=== PATIENT | female | born 1935 | race Two or more races ===

== ENCOUNTER 2017-09-23 13:48 | Emergency (ER) | payer OTHER ==
[~2017-09-23] VITALS: Ht 152.4 cm; Wt 54.0 kg
[~2017-09-23 13:48] MED LIST: AMLO5TAB2 PO; DICL50TA7 PO; SIMV5TAB6 PO; SITA1TAB2 PO; VALS1TAB6 PO
--- NOTE | 2017-09-23 13:55 | NUR ---
Pt was bb daughter for increasing rt sided abd pain that goes to rt back x sunday. Denies N/V. Denies hematuria, dysuria. ambulatory in a steady gait to ed bed 04, NAD. Resp even and unlabored. pending er md evaluation
[2017-09-23 14:42] LABS: BASOPHILS % (AUTO) 0.3 % (0.0-2.0); EOSINOPHILS # (AUTO) 0.1 /CMM (0.0-0.7); HEMATOCRIT 33 % (33-45); HEMOGLOBIN 11.2 g/dL (11.5-14.8); LYMPHOCYTES # (AUTO) 1.1 /CMM (0.8-4.8); LYMPHOCYTES % (AUTO) 19.4 % (20.0-44.0); MEAN CORPUSCULAR HEMOGLOBIN 28 PG (26.0-33.0); MEAN CORPUSCULAR HGB CONC 34 g/dl (31.0-36.0); MEAN CORPUSCULAR VOLUME 84 fL (82-100); MONOCYTES # (AUTO) 0.3 /CMM (0.1-1.30); NEUTROPHILS # (AUTO) 4.3 /CMM (1.8-8.9); NEUTROPHILS % (AUTO) 73.3 % (43.0-81.0); PLATELET COUNT (AUTO) 306 /CMM (150-450); RDW COEFFICIENT OF VARIATION 13.3 (11.5-15.0); RED BLOOD CELL COUNT(AUTO) 3.95 MIL/uL (4.0-5.2); WHITE BLOOD COUNT (AUTO) 5.8 K/uL (4.3-11.0)
[2017-09-23 14:47] LABS: CARBON DIOXIDE 26 mmol/L (21-32); CHLORIDE 106 mmol/L (98-107); CREATININE 2.5 mg/dL (0.6-1.3); GLUCOSE 320 mg/dL (74-106); POTASSIUM 5.7 mmol/L (3.5-5.1); SODIUM SERUM 137 mmol/L (136-145); UREA NITROGEN, BLOOD 66 mg/dL (7-18)
[2017-09-23 14:50] LABS: INR 0.89 (0.87-1.13); PROTHROMBIN TIME 9.3 SECS (9.5-12.7)
[2017-09-23 14:51] LABS: APPEARANCE,URINE Clear (CLEAR); BILIRUBIN,URINE Negative (NEGATIVE); BLOOD, URINE Small Ery/uL (NEGATIVE); COLOR,URINE Yellow (YELLOW); KETONES,URINE Trace (NEGATIVE); LEUKOCYTE ESTERASE ,URINE Trace (NEGATIVE); NITRITE, URINE Negative (NEGATIVE); PROTEIN,URINE >=300 mg/dl (NEGATIVE); UGLUCOSE >=1000 mg/dL (NEGATIVE); UROBILINOGEN,URINE 0.2 EU/dL (0.2)
[2017-09-23 14:53] LABS: ALANINE AMINOTRANSFERASE 39 U/L (12-78); ALBUMIN 2.9 g/dL (3.4-5.0); ALKALINE PHOSPHATASE 108 U/L (46-116); ASPARTATE AMINOTRANSFERASE 53 U/L (15-37); BILIRUBIN,TOTAL 0.4 mg/dL (0.2-1.0); LIPASE 235 U/L (73-393); TOTAL PROTEIN, SERUM 7.2 g/dL (6.4-8.2)
[2017-09-23 14:55] LABS: TROPONIN I < 0.017 ng/mL (0.00-0.056)
[2017-09-23 14:59] LABS: BACTERIA,URINE Few /HPF (None Seen); RBC,URINE 0-2 /HPF (0-2); SQUAMOUS EPITHELIAL CELL,UR Few /HPF (None Seen)
[2017-09-23] MEDS ORDERED: IV NS 0.9% 500 ML IV ONE (15:00)
--- NOTE | 2017-09-23 15:01 | NUR ---
PT TO CTSCAN
[2017-09-23 16:53] VITALS: BP 138/86
[2017-09-23] MEDS ORDERED: INSULIN REGULAR, HUMAN 100 UNIT/ML 10 ML VIAL SQ ONE (17:00)
== END 2017-09-23 16:55 | disposition home or self-care (01) ==
LOC: ER 13:52
DX: R10.9 Unspecified abdominal pain (principal); E78.00 Pure hypercholesterolemia, unspecified; I10 Essential (primary) hypertension; N28.9 Disorder of kidney and ureter, unspecified; E11.9 Type 2 diabetes mellitus without complications
CPT/HCPCS: 36415; 74176; 80048; 80076; 81001; 83690; 84484; 85025; 85730; 87086; 93005; 99285; A4606; J7040; Z7610; 81000-TC

== ENCOUNTER 2018-04-06 15:21 | Emergency (ER) | payer OTHER ==
[~2018-04-06] VITALS: Ht 154.9 cm; Wt 54.4 kg
[~2018-04-06 15:21] MED LIST changes: -AMLO5TAB2 PO; +AMLO5TAB7 PO
--- NOTE | 2018-04-06 15:33 | NUR ---
BS 372
--- NOTE | 2018-04-06 15:38 | NUR ---
PT PRESENTED TO THE ER WITH A C/O UMBILICUS, EPIGASTRIC, LUQ AND LOQ ABD PAIN SINCE YESTERDAY.
--- NOTE | 2018-04-06 15:47 | NUR ---
18G IV IN RAC. BLOOD DRAWN AND SENT TO LAB.
[2018-04-06 15:52] LABS: BASOPHILS % (AUTO) 0.2 % (0.0-2.0); EOSINOPHILS % (AUTO) 1.9 % (0.0-6.0); HEMATOCRIT 32 % (33-45); LYMPHOCYTES % (AUTO) 22.1 % (20.0-44.0); MEAN CORPUSCULAR HGB CONC 34 g/dl (31.0-36.0); MEAN CORPUSCULAR VOLUME 84 fL (82-100); MONOCYTES # (AUTO) 0.4 /CMM (0.1-1.30); MONOCYTES % (AUTO) 8.9 % (2.0-12.0); NEUTROPHILS % (AUTO) 66.9 % (43.0-81.0); PLATELET COUNT (AUTO) 310 /CMM (150-450); RDW COEFFICIENT OF VARIATION 12.6 (11.5-15.0); RED BLOOD CELL COUNT(AUTO) 3.85 MIL/uL (4.0-5.2); WHITE BLOOD COUNT (AUTO) 4.5 K/uL (4.3-11.0)
--- NOTE | 2018-04-06 15:56 | NUR ---
IN AND OUT CATH DONE AND SAMPLE SENT TO LAB.
[2018-04-06] MEDS ORDERED: ONDANSETRON HCL/PF 4 MG/2 ML VIAL IVP ONE (16:00)
[2018-04-06] MEDS ORDERED: MORPHINE SULFATE INJ 2 MG/ML DISP.SYRIN IV ONE (16:00)
[2018-04-06] MEDS ORDERED: MORPHINE SULFATE INJ 2 MG/ML DISP.SYRIN ONE (16:00)
[2018-04-06] MEDS ORDERED: ONDANSETRON HCL/PF 4 MG/2 ML VIAL ONE (16:00)
[2018-04-06 16:01] LABS: APPEARANCE,URINE Slightly Cloudy (CLEAR); BILIRUBIN,URINE Negative (NEGATIVE); BLOOD, URINE Small Ery/uL (NEGATIVE); COLOR,URINE Yellow (YELLOW); KETONES,URINE Negative (NEGATIVE); LEUKOCYTE ESTERASE ,URINE Negative (NEGATIVE); NITRITE, URINE Negative (NEGATIVE); PH,URINE 5.5 (5.0-8.0); PROTEIN,URINE >=300 mg/dl (NEGATIVE); UGLUCOSE 500 MG/DL mg/dL (NEGATIVE); UROBILINOGEN,URINE 0.2 EU/dL (0.2)
--- NOTE | 2018-04-06 16:05 | NUR ---
PT LEFT FOR CT VIA WC.
[2018-04-06 16:08] LABS: ALANINE AMINOTRANSFERASE 33 U/L (12-78); ALBUMIN 2.5 g/dL (3.4-5.0); ALKALINE PHOSPHATASE 144 U/L (46-116); ASPARTATE AMINOTRANSFERASE 24 U/L (15-37); BILIRUBIN,TOTAL 0.2 mg/dL (0.2-1.0); CALCIUM, SERUM 8.7 mg/dL (8.5-10.1); CARBON DIOXIDE 25 mmol/L (21-32); CHLORIDE 101 mmol/L (98-107); CREATININE 3.3 mg/dL (0.6-1.3); LIPASE 149 U/L (73-393); POTASSIUM 4.5 mmol/L (3.5-5.1); SODIUM SERUM 133 mmol/L (136-145); TOTAL PROTEIN, SERUM 6.5 g/dL (6.4-8.2); UREA NITROGEN, BLOOD 59 mg/dL (7-18)
[2018-04-06 16:10] LABS: TROPONIN I < 0.017 ng/mL (0.00-0.056)
[2018-04-06 16:12] LABS: GLUCOSE 412 mg/dL (74-106)
[2018-04-06 16:15] LABS: INR 0.9 (0.87-1.13)
--- NOTE | 2018-04-06 16:24 | NUR ---
PT RETURNED FROM CT.
[2018-04-06 16:42] LABS: BACTERIA,URINE Rare /HPF (None Seen); RBC,URINE 0-2 /HPF (0-2); SQUAMOUS EPITHELIAL CELL,UR Few /HPF (None Seen); URINE AMORPHOUS URATE Moderate /HPF (None Seen); WBC,URINE 0-2 /HPF (0-3)
--- NOTE | 2018-04-06 17:06 | NUR ---
CALLED [facility]: RADIOLOGY READ. RADIOLOGIST TO REVIEW CT AND CXR NOW.
[2018-04-06] MEDS ORDERED: INSULIN REGULAR, HUMAN 100 UNIT/ML 10 ML VIAL IV ONE (17:30)
[2018-04-06] MEDS ORDERED: IV NS 0.9% 1,000 ML BAG IV ONE (17:30)
[2018-04-06] MEDS ORDERED: INSULIN REGULAR, HUMAN 100 UNIT/ML 10 ML VIAL ONE (17:33)
[2018-04-06 18:34] VITALS: BP 136/78
--- NOTE | 2018-04-06 18:34 | NUR ---
IV removed. Catheter intact and site benign. Pressure and 4x4 applied to site. No bleeding noted.Patient discharged to home in stable condition. Written and verbal after care instructions given. Patient verbalizes understanding of instruction AND RX. PT'S SON IS AT THE BEDSIDE AND IS TAKING PT HOME. VSS. PT IS AA&O X4. RESP EVEN AND UNLABORED. NAD NOTED. PT AMBULATED OUT WITH A STEADY GAIT.
== END 2018-04-06 18:35 | disposition home or self-care (01) ==
LOC: ER 15:28
DX: K59.00 Constipation, unspecified (principal); E11.65 Type 2 diabetes mellitus with hyperglycemia; E78.00 Pure hypercholesterolemia, unspecified; I11.0 Hypertensive heart disease with heart failure; I50.9 Heart failure, unspecified; I70.0 Atherosclerosis of aorta; N28.9 Disorder of kidney and ureter, unspecified; Z60.2 Problems related to living alone
CPT/HCPCS: 36415; 71045; 74176; 80048; 80076; 81001; 82962 ×2; 83690; 84484; 85025; 85730; 87086; 93005; 96361; 96374; 96375; 99285; A4606; J1815; J2270; J2405; J7030; 81000-TC; Z7610

== ENCOUNTER 2020-01-06 13:55 | Inpatient (IN) | payer MEDICARE, MEDICAID ==
[~2020-01-06] VITALS: Ht 154.9 cm; Wt 63.5 kg
[~2020-01-06 13:55] MED LIST changes: -AMLO5TAB7 PO; +AMLO5TAB9 PO; +SIMV5TAB59 PO; -SIMV5TAB6 PO
--- NOTE | 2020-01-06 14:16 | NUR ---
PT AAOX4. From [facility]. [id number], from home, c/o weakness x 1 day and refused dialysis today. PT is bahraini speaking. Per RA, pt BP was 240 which dialysis refused her. Home health nurse gave the patient amlodipine before calling the RA. Bp was 191/82 uppon arrival. Pt ambulatory with steady gait, able to move all extremities with no neuro deficit. Placed in gown and pulse ox. at bedside for eval.
--- NOTE | 2020-01-06 14:24 | NUR ---
PT's son at bedside. Dialysis port on left arm.
--- NOTE | 2020-01-06 14:57 | NUR ---
XRAY AT BEDSIDE
--- NOTE | 2020-01-06 15:00 | NUR ---
PT PALCED ON 2L NC. SAT WAS 89 NOW 98%
[2020-01-06] MEDS ORDERED: INSU100I26 SUBCUT (15:52)
[2020-01-06] MEDS ORDERED: INSU100I4 SUBCUT (15:52)
[2020-01-06] MEDS ORDERED: ATOR40TA PO (15:52)
--- NOTE | 2020-01-06 15:58 | NUR ---
SECURITIES COUNSELOR AT BEDSIDE FOR BLOOD DRAW.
--- NOTE | 2020-01-06 15:58 | NUR ---
HR 87, BP 191/93 97%SAT MD AWARE.
--- NOTE | 2020-01-06 16:06 | NUR ---
ELEMENTARY [employer] PROFESSIONAL COLLECTED LABS
--- NOTE | 2020-01-06 16:07 | NUR ---
DUPLEX VENOUS AT BEDSIDE
[2020-01-06 16:10] LABS: BASOPHILS % (AUTO) 0.4 % (0.0-2.0); EOSINOPHILS % (AUTO) 0.8 % (0.0-6.0); HEMATOCRIT 33 % (33-45); HEMOGLOBIN 10.8 g/dL (11.5-14.8); LYMPHOCYTES # (AUTO) 0.6 /CMM (0.8-4.8); LYMPHOCYTES % (AUTO) 11.8 % (20.0-44.0); MEAN CORPUSCULAR HGB CONC 33 g/dl (31.0-36.0); MEAN CORPUSCULAR VOLUME 96 fL (82-100); MONOCYTES # (AUTO) 0.5 /CMM (0.1-1.30); MONOCYTES % (AUTO) 8.8 % (2.0-12.0); NEUTROPHILS # (AUTO) 4.2 /CMM (1.8-8.9); NEUTROPHILS % (AUTO) 78.2 % (43.0-81.0); PLATELET COUNT (AUTO) 227 /CMM (150-450); RED BLOOD CELL COUNT(AUTO) 3.43 MIL/uL (4.0-5.2); WHITE BLOOD COUNT (AUTO) 5.3 K/uL (4.3-11.0)
[2020-01-06] MEDS ORDERED: NIFEdipine (10MG) 10 MG CAPSULE ONE (16:16)
--- NOTE | 2020-01-06 16:20 | NUR ---
called pharmacy for med
[2020-01-06 16:25] LABS: CALCIUM, SERUM 8.3 mg/dL (8.5-10.1); CARBON DIOXIDE 28 mmol/L (21-32); CHLORIDE 94 mmol/L (98-107); CREATININE 6.7 mg/dL (0.6-1.3); GLUCOSE 313 mg/dL (74-106); POTASSIUM 4.8 mmol/L (3.5-5.1); SODIUM SERUM 132 mmol/L (136-145); UREA NITROGEN, BLOOD 45 mg/dL (7-18)
[2020-01-06] MEDS ORDERED: NIFEdipine XL (30MG) 30 MG TAB PO ONE (16:30)
--- NOTE | 2020-01-06 16:30 | NUR ---
Called pharmacy for the med.
[2020-01-06 16:37] LABS: ALANINE AMINOTRANSFERASE 15 U/L (12-78); ALBUMIN 2.6 g/dL (3.4-5.0); ALKALINE PHOSPHATASE 250 U/L (46-116); ASPARTATE AMINOTRANSFERASE 26 U/L (15-37); BILIRUBIN,DIRECT 0.1 mg/dL (0.0-0.2); BILIRUBIN,TOTAL 0.5 mg/dL (0.2-1.0); TOTAL PROTEIN, SERUM 6.3 g/dL (6.4-8.2)
[2020-01-06 17:00] LABS: B-TYPE NATRIURETIC PEPTIDE 66086 PG/ML (0-125)
[2020-01-06] MEDS ORDERED: LABETALOL HCL IV 100MG VIAL ONE (17:51)
[2020-01-06] MEDS ORDERED: LABETALOL HCL IV 100MG VIAL IV ONE (18:00)
--- NOTE | 2020-01-06 18:11 | NUR ---
Pt resting. Son at bedside
--- NOTE | 2020-01-06 20:54 | NUR ---
UPDATED BED 312-2
--- NOTE | 2020-01-06 21:14 | NUR ---
REPORT GIVEN TO NORBERT ZHU FOR MABEL
[2020-01-06 21:20] VITALS: BP 151/79
--- NOTE | 2020-01-06 21:20 | NUR ---
RECEIVED PATIENT FROM ED VIA GURNEY IN STABLE CONDITION. PATIENT AWAKE, A/O X3 AND ABLE TO PROVIDE HISTORY. NO C/O PAIN OR DISCOMFORT. PERIPHERAL LINE INTACT AND PATENT. CHRISTY AV SHUNT INTACT WITH NO REDNESS, BLEEDING, OR SWELLING AND NOTED WITH (+) BRUIT AND THRILL. VITALS WNL. ENCOURAGED USE OF CALL LIGHT FOR ASSISTANCE AND VERBALIZED GOOD UNDERSTANDING. ROOM FREE OF CLUTTER AND BELONGINGS KEPT NEAR BEDSIDE. ROOM FREE OF CLUTTER AND BELONGINGS KEPT NEAR BEDSIDE. WILL CONTINUE TO MONITOR
[2020-01-06] MEDS ORDERED: HYDROCODONE/APAP 5/325MG 1 EACH TABLET PO PRN (21:30)
[2020-01-06] MEDS ORDERED: ACETAMINOPHEN 325 MG TABLET PO PRN (21:30)
[2020-01-06] MEDS ORDERED: ONDANSETRON HCL/PF 4 MG/2 ML VIAL IVP PRN (21:30)
[2020-01-06] MEDS ORDERED: Z GUARD REMEDY 2 OZ OINT TP PRN (21:30)
--- NOTE | 2020-01-06 21:33 | NUR ---
PT TRANSFERED PER ACLS PROTOCLL
[2020-01-06] MEDS: INSULIN GLARGINE, 100 UNIT/ML CARTRIDGE SQ SCH (22:16)
[2020-01-06] MEDS: ATORVASTATIN 40 MG TABLET PO SCH (22:17)
[2020-01-07 00:01] VITALS: BP 143/61
[2020-01-07 03:27] LABS: BASOPHILS % (AUTO) 0.4 % (0.0-2.0); EOSINOPHILS % (AUTO) 2.7 % (0.0-6.0); HEMATOCRIT 31 % (33-45); HEMOGLOBIN 10.4 g/dL (11.5-14.8); LYMPHOCYTES # (AUTO) 0.6 /CMM (0.8-4.8); LYMPHOCYTES % (AUTO) 15.3 % (20.0-44.0); MEAN CORPUSCULAR HGB CONC 33 g/dl (31.0-36.0); MEAN CORPUSCULAR VOLUME 95 fL (82-100); MONOCYTES # (AUTO) 0.4 /CMM (0.1-1.30); MONOCYTES % (AUTO) 9.8 % (2.0-12.0); NEUTROPHILS # (AUTO) 2.6 /CMM (1.8-8.9); NEUTROPHILS % (AUTO) 71.8 % (43.0-81.0); PLATELET COUNT (AUTO) 228 /CMM (150-450); RED BLOOD CELL COUNT(AUTO) 3.29 MIL/uL (4.0-5.2); WHITE BLOOD COUNT (AUTO) 3.6 K/uL (4.3-11.0)
[2020-01-07 03:51] LABS: ALANINE AMINOTRANSFERASE 15 U/L (12-78); ALBUMIN 2.4 g/dL (3.4-5.0); ALKALINE PHOSPHATASE 216 U/L (46-116); ASPARTATE AMINOTRANSFERASE 21 U/L (15-37); BILIRUBIN,TOTAL 0.4 mg/dL (0.2-1.0); CARBON DIOXIDE 28 mmol/L (21-32); CHLORIDE 95 mmol/L (98-107); CREATININE 7.3 mg/dL (0.6-1.3); GLUCOSE 287 mg/dL (74-106); MAGNESIUM 2.4 mg/dL (1.8-2.4); PHOSPHORUS 5.6 mg/dL (2.5-4.9); POTASSIUM 4.3 mmol/L (3.5-5.1); SODIUM SERUM 133 mmol/L (136-145); TOTAL PROTEIN, SERUM 5.9 g/dL (6.4-8.2); UREA NITROGEN, BLOOD 45 mg/dL (7-18)
[2020-01-07 03:53] LABS: IRON, SERUM 44 ug/dl (50-175); TOTAL IRON BINDING CAPACITY 210 ug/dl (250-450)
[2020-01-07 03:54] LABS: CHOLESTEROL 170 mg/dL (<200); HDL CHOLESTEROL 95 mg/dL (40-60); LDL 68 mg/dL (0-99); THYROID STIMULATING HORMONE 7.926 uIU/mL (0.358-3.74); TRIGLYCERIDES 32 mg/dL (30-150)
[2020-01-07 04:00] VITALS: BP 134/63
[2020-01-07] MEDS: INSULIN LISPRO/ASPART 100 UNIT/ML CARTRIDGE SQ SCH ×3 (06:39→16:51)
--- NOTE | 2020-01-07 06:47 | NUR ---
MS MARKO NOTES PATIENT ASLEEP IN BED WITH NO DISTRESS NOTED. CALL LIGHT WITHIN REACH. NO C/O PAIN OR DISCOMFORT. ALL DUE MEDS GIVEN ORDERED WITH NO ASE. PERIPHERAL LINE INTACT AND PATENT. BED IN LOW LOCK SETTING WITH BED ALARM ON AND FUNCTIONING PROPERLY. ROOM FREE OF CLUTTER AND BELONGINGS KEPT NEAR BEDSIDE. WILL ENDORSE TO ONCOMING SHIFT. Addendum: 01/07/20 at 0648 by AUBREY AGOSTO RN error LYNETTE ZHU NOTES
--- NOTE | 2020-01-07 06:48 | NUR ---
DIRECTOR OF CODING NOTES
--- NOTE | 2020-01-07 07:37 | NUR ---
TELE/RN OPENING NOTE Patient is resting in bed, A/o x3, showing no signs of acute distress or SOB, saturating >95% on 2L NC. Tele monitor sinus rhythm 71. IV line in the r hand #22g s/l is clean and intact. CHRISTY AV shunt noted. Patient has no complaints of pain at this time. Bed is in lowest position, side rails x3 in upright position, call light is within reach and patient is aware of how to call for assistance when needed. Fall, safety and fall precautions enforced. Will continue with plan of care.
[2020-01-07 08:00] VITALS: BP 147/72
[2020-01-07] MEDS: AMLODIPINE BESYLATE 5 MG TABLET PO SCH (09:01)
--- NOTE | 2020-01-07 12:25 | NUR ---
MS/RN NON-ADMIN INSULIN LISPRO Non-admin blood sugar is 102. Patient is currently on HD and is not going to be eating at this time. Will continue to monitor.
--- NOTE | 2020-01-07 15:00 | NUR ---
MS/RN HD HD completed with 1000cc out. Patient remains stable, VS WNL.
--- NOTE | 2020-01-07 19:32 | NUR ---
MS/RN OPENING NOTE Patient is resting in bed, A/o x3, showing no signs of acute distress or SOB, saturating >95% on 2L NC. IV line in the R hand #22g s/l is clean and intact. CHRISTY AV shunt noted. RUC central line noted. Patient has no complaints of pain at this time. Bed is in lowest position, side rails x3 in upright position, call light is within reach and patient is aware of how to call for assistance when needed. Fall, safety and fall precautions enforced. Will continue with plan of care.
[2020-01-07 20:00] VITALS: BP 144/76
--- NOTE | 2020-01-07 20:04 | NUR ---
MS ZHU NOTES \\ Addendum: 01/07/20 at 2022 by DERIAN DELACRUZ RN MS ZHU NOTES PATIENT RECEIVED IN BED SLEEPING. EASILY AWAKEN BY NAME AND LIGHT TOUCH. PATIENT ALERT AND ORIENTED X 2, PATIENT MAINLY RW[place] SPEAKING. PATIENT ON NASAL CANNULA, WITH EVEN BREATHING, NO RESPIRATORY DISTRESS PRESENT. PATIENT SKIN CLEAN, DRY, AND INTACT, WITH IV ACCESS ON RIGHT HAND 22 GAUGE, RIGHT UPPER CENTRAL LINE, AND LEFT UPPER ARM AV SHUNT. SAFETY PRECAUTIONS IN PLACE, WITH BED IN THE LOWEST POSITION, BILATERAL SIDE RAILS UP, BED ALARM ON, BED LOCKED, AND CALL LIGHT WITHIN EASY REACH. WILL CONTINUE TO MONITOR PATIENT.
[2020-01-07] MEDS: INSULIN GLARGINE, 100 UNIT/ML CARTRIDGE SQ SCH (22:00)
[2020-01-07] MEDS: ATORVASTATIN 40 MG TABLET PO SCH (22:08)
--- NOTE | 2020-01-07 22:14 | NUR ---
MS RN NOTES PATIENT'S BLOOD SUGAR 128, NON-ADMIN INSULIN, LANTUS. PATIENT REFUSED INSULIN, EDUCATED AND INFORMED PATIENT ON THE BENEFITS AND RISKS. PATIENT VERBALIZED UNDERSTANDING, AND PATIENT STILL REFUSED. WILL CONTINUE TO MONITOR PATIENT.
--- NOTE | 2020-01-08 06:26 | NUR ---
MS RN NOTES PATIENT IN BED RESTING, EASILY AWAKEN BY LIGHT TOUCH AND BY NAME. ALERT AND ORIENTED X 3. MAINLY GUYANESE SPEAKING. PATIENT ON NASAL CANNULA, PRESENTING NO SIGNS OF RESPIRATORY DISTRESS, NO SIGNS OF SOB, AND WITH EVEN NON-LABORED BREATHING. PATIENT IV ACCESS IN PLACE, INTACT AND PATENT. SKIN KEPT CLEAN AND DRY. PROVIDED COMFORT MEASURES TO THE PATIENT. SAFETY PRECAUTIONS IN PLACE WITH BED IN THE LOWEST POSITION, BED ALARM ON, BED LOCKED, BILATERAL SIDE RAILS UP, AND CALL LIGHT WITHIN EASY REACH. WILL ENDORSE MABEL TO UPCOMING AM NURSE.
[2020-01-08] MEDS: INSULIN LISPRO/ASPART 100 UNIT/ML CARTRIDGE SQ SCH ×3 (06:46→17:24)
[2020-01-08 07:10] LABS: BASOPHILS % (AUTO) 0.4 % (0.0-2.0); EOSINOPHILS % (AUTO) 2.8 % (0.0-6.0); HEMATOCRIT 33 % (33-45); HEMOGLOBIN 10.6 g/dL (11.5-14.8); LYMPHOCYTES # (AUTO) 0.7 /CMM (0.8-4.8); LYMPHOCYTES % (AUTO) 16.2 % (20.0-44.0); MEAN CORPUSCULAR HGB CONC 32 g/dl (31.0-36.0); MEAN CORPUSCULAR VOLUME 97 fL (82-100); MONOCYTES # (AUTO) 0.5 /CMM (0.1-1.30); MONOCYTES % (AUTO) 10.1 % (2.0-12.0); NEUTROPHILS # (AUTO) 3.2 /CMM (1.8-8.9); NEUTROPHILS % (AUTO) 70.5 % (43.0-81.0); PLATELET COUNT (AUTO) 218 /CMM (150-450); RED BLOOD CELL COUNT(AUTO) 3.41 MIL/uL (4.0-5.2); WHITE BLOOD COUNT (AUTO) 4.6 K/uL (4.3-11.0)
--- NOTE | 2020-01-08 07:32 | NUR ---
MS/RN OPENING NOTE Patient is resting in bed, A/o x3, showing no signs of acute distress or SOB, saturating >95% on 2L NC. IV line in the right hand #22g s/l is clean and intact. CHRISTY AV shunt noted. RUC central line noted. Patient has no complaints of pain at this time. Bed is in lowest position, side rails x3 in upright position, call light is within reach and patient is aware of how to call for assistance when needed. Fall, safety and fall precautions enforced. Will continue with plan of care.
[2020-01-08 08:28] VITALS: BP 159/77
[2020-01-08 08:30] LABS: CALCIUM, SERUM 7.9 mg/dL (8.5-10.1); CHLORIDE 102 mmol/L (98-107); CREATININE 6.6 mg/dL (0.6-1.3); GLUCOSE 154 mg/dL (74-106); MAGNESIUM 2.3 mg/dL (1.8-2.4); PHOSPHORUS 5.1 mg/dL (2.5-4.9); SODIUM SERUM 139 mmol/L (136-145)
[2020-01-08 08:39] LABS: CARBON DIOXIDE 26 mmol/L (21-32); UREA NITROGEN, BLOOD 35 mg/dL (7-18)
[2020-01-08] MEDS: AMLODIPINE BESYLATE 5 MG TABLET PO SCH (08:42)
--- NOTE | 2020-01-08 14:30 | NUR ---
MS/RN HD Patient has started HD
[2020-01-08] MEDS ORDERED: LOPERAMIDE HCL (2 MG CAP) 2 MG CAPSULE PO PRN (15:00)
[2020-01-08] MEDS ORDERED: DIPHENOXYLATE HCL/ATROP SULF 1 UDTAB TABLET PO ONE (17:00)
--- NOTE | 2020-01-08 17:00 | NUR ---
MS/RN note Notified MD that patient completed dialysis with 3000cc out. BP taken right after dialysis is 170/80s. No new orders at this time. Will continue to monitor.
--- NOTE | 2020-01-08 17:30 | NUR ---
MS/RN NON-ADMIN INSULIN No insulin coverage per protocol, BS is 103.
--- NOTE | 2020-01-08 18:30 | NUR ---
MS/RN note Manual BP of patient is 170/85. Patient remains asymptomatic, A/O x3. MD notified. Waiting for response.
--- NOTE | 2020-01-08 19:27 | NUR ---
MS/RN note MD ordered Hydralazine 50mg PO ONE TIME. Will carry out.
[2020-01-08] MEDS ORDERED: hydrALAZINE HCL 50 MG TABLET PO ONE (19:30)
--- NOTE | 2020-01-08 19:49 | NUR ---
MS/RN CLOSING NOTE Patient is resting in bed, A/o x3, showing no signs of acute distress or SOB, saturating >95% on 2L NC. IV line in the right hand #22g s/l is clean and intact. CHRISTY AV shunt noted. RUC central line noted. All patient needs met, all due meds given. Patient has DC order, however spoke with son after patient completed HD today and son stated "It's too late for me to pick her up, I will get her tomorrow at 9am." Charge nurse, case management, and MD made aware. Hydralazine 50mg PO given one time per MD order. Will monitor BP closely. Bed is in lowest position, side rails x3 in upright position, call light is within reach and patient is aware of how to call for assistance when needed. Fall, safety and aspiration precautions enforced. Will endorse to manager night RN.
[2020-01-08 20:00] VITALS: BP 171/78
--- NOTE | 2020-01-08 20:23 | NUR ---
MS RN NOTES PATIENT RECEIVED IN BED SLEEPING. EASILY AWAKEN BY NAME AND LIGHT TOUCH. ALERT AND ORIENTED X 3. PATIENT MAINLY WOL[place] SPEAKING. PATIENT ON NASAL CANNULA, 2 L, SATURATING >95%, NO SIGNS OF RESPIRATORY DISTRESS, NO SIGNS OF SOB, AND WITH EVEN NON-LABORED BREATHING. PATIENT SKIN DRY. WARM AND INTACT. IV ACCESS IN PLACE, INTACT, AND PATENT. PROVIDED COMFORT MEASURES TO PATIENT. SAFETY PRECAUTIONS IN PLACE WITH BED IN THE LOWEST POSITION, BED ALARM ON, BED LOCKED, BILATERAL SIDE RAILS UP, AND CALL LIGHT WITHIN EASY REACH. WILL CONTINUE TO MONITOR PATIENT.
[2020-01-08] MEDS: ATORVASTATIN 40 MG TABLET PO SCH (21:25)
[2020-01-08] MEDS: INSULIN GLARGINE, 100 UNIT/ML CARTRIDGE SQ SCH (21:29)
--- NOTE | 2020-01-08 21:37 | NUR ---
MS RN NOTES PATIENT'S BLOOD SUGAR 179, ADMINISTERED 10 UNITS OF INSULIN LANTUS SQ. INFORMED PATIENT AND SNACK GIVEN. WILL CONTINUE TO MONITOR PATIENT.
[2020-01-08 22:00] VITALS: BP 147/69
[2020-01-09] MEDS ORDERED: DEXTROSE 50%-WATER 50 ML DISP.SYRIN ONE (05:02)
[2020-01-09] MEDS ORDERED: DEXTROSE 50%-WATER 50 ML DISP.SYRIN IVP ONE (05:30)
--- NOTE | 2020-01-09 05:45 | NUR ---
RN NOTES BLOOD SUGAR WAS -42, D50 WAS GIVEN PER PROTOCOL
--- NOTE | 2020-01-09 06:25 | NUR ---
MS RN NOTES PATIENT IN BED RESTING, ALERT AND ORIENTED X 3. PATIENT ON NASAL CANNULA, 2 L NO SIGNS OF SHORTNESS OF BREATH. PATIENT MAINLY EGYPTIAN SPEAKING. PATIENT'S BLOOD SUGAR 173, HELD INSULIN/LISPRO DUE TO ADMINISTERED DEXTROSE INJ 50% 50 mL PER PROTOCOL OF PREVIOUS BLOOD SUGAR OF 42. PATIENT IV ACCESS INTACT AND PATENT. SKIN KEPT CLEAN AND DRY. PATIENT PRESENTS AND COMPLAINS OF NO PAIN OR DISCOMFORT. PROVIDED COMFORT MEASURES TO PATIENT. SAFETY PRECAUTIONS IN PLACE WITH THE BED IN THE LOWEST POSITION, BED ALARM ON, BED LOCKED, BILATERAL SIDE RAILS UP, AND CALL LIGHT WITHIN EASY REACH. WILL ENDORSE MABEL TO UPCOMING AM NURSE.
[2020-01-09] MEDS: INSULIN LISPRO/ASPART 100 UNIT/ML CARTRIDGE SQ SCH ×2 (07:55→11:02)
[2020-01-09 08:00] VITALS: BP 164/84
--- NOTE | 2020-01-09 08:00 | NUR ---
M/S RN NOTES PATIENT RESTING IN BED, ALERT AND ORIENTED X3, NO RESPIRATORY DISTRESS NOTED, NO C/O PAIN AT THIS TIME. SKIN WARM TO TOUCH ,IV ACCESS SITE INTACT AND PATENT. BLOOD SUGAR CHECKED 150MG/DL. PATIENT GIVEN 5 UNITS OF HUMALOG ORDERED. PATIENT'S NEEDS ATTENDED, BED ON LOWEST LOCKED POSITION, CALL LIGHT WITHIN REACH. WILL CONTINUE TO MONITOR.
[2020-01-09 08:18] VITALS: BP 164/84
[2020-01-09] MEDS: AMLODIPINE BESYLATE 5 MG TABLET PO SCH (08:18)
--- NOTE | 2020-01-09 12:20 | NUR ---
M/S RN NOTES PATIENT AWAKE IN BED, FAMILY AT BEDSIDE. PATIENT IN NO RESPIRATORY DISTRESS, NO C/O PAIN AT THIS TIME. VITAL SIGNS STABLE. BLOOD SUGAR 187MG/DL GIVEN 5 UNITS HUMALOG ORDERED. PATIENT AND FAMILY GIVEN DISCHARGE INSTRUCTIONS, VERBALIZED UNDERSTANDING. SKIN ASSESSED, PHOTOS REFUSED TO BE TAKEN. IV REMOVED AND APPLIED PRESSURE DRESSING. PATIENT ESCORTED TO LOBBY VIA WHEELCHAIR BY MUSICAL INSTRUMENTS ASSEMBLER. PATIENT LEFT WITH FAMILY VIA PRIVATE CAR.
== END 2020-01-09 12:20 | disposition home or self-care (01) | DRG 291 ==
LOC: ER 13:56 → TELE 20:46 → MED 01-07 09:05
PROVIDERS: ADMIT Nurse Practitioner Acute Care; ATTEND Nurse Practitioner Acute Care
PROC: 5A1D70Z Performance of Urinary Filtration, Intermittent, Less than 6 Hours Per Day (ICD-10-PCS; principal; 2020-01-07)
DX: I13.2 Hypertensive heart and chronic kidney disease with heart failure and with stage 5 chronic kidney disease, or end stage renal disease (principal); I50.33 Acute on chronic diastolic (congestive) heart failure; N18.6 End stage renal disease; E87.1 Hypo-osmolality and hyponatremia; E11.22 Type 2 diabetes mellitus with diabetic chronic kidney disease; Z99.2 Dependence on renal dialysis; E78.00 Pure hypercholesterolemia, unspecified; Z79.4 Long term (current) use of insulin; Z79.84 Long term (current) use of oral hypoglycemic drugs; Z79.899 Other long term (current) drug therapy; E78.5 Hyperlipidemia, unspecified; F32.9 Major depressive disorder, single episode, unspecified; Z91.19 Patient's noncompliance with other medical treatment and regimen; Z91.15 Patient's noncompliance with renal dialysis; D63.1 Anemia in chronic kidney disease; E07.81 Sick-euthyroid syndrome
CPT/HCPCS: 36415; 71045-TC; 80048-TC; 80053-TC; 80061-TC; 80076-TC; 82962-TC; 83540-TC; 83735-TC; 83880; 84100-TC; 84439-TC; 84443-TC; 84484-TC; 85025-TC; 85730-TC; 86706; 87081-TC; 87340; 90935-TC; 93307-TC; 93970-TC; 93971-TC; A6403; G0378; J1815; J3490